=== PATIENT | female | born 1935 | race Caucasian/White ===

== ENCOUNTER 2022-05-08 16:03 | Emergency (ER) | payer MEDICARE, OTHER | END 2022-05-08 17:26 | disposition left against medical advice (07) | LOC: JD.ED 16:03 | DX: Z53.21 Procedure and treatment not carried out due to patient leaving prior to being seen by health care provider (principal) ==

== ENCOUNTER 2022-05-08 18:18 | Emergency (ER) | payer MEDICARE, OTHER ==
[2022-05-08] MEDS ORDERED: HYDROmorphone 1 MG/ML Syringe IM ONE (20:10)
== END 2022-05-08 21:40 | disposition home or self-care (01) ==
LOC: JD.ED 18:18
DX: M25.552 Pain in left hip (principal); I10 Essential (primary) hypertension; F17.210 Nicotine dependence, cigarettes, uncomplicated; Z88.5 Allergy status to narcotic agent; Z88.6 Allergy status to analgesic agent
CPT/HCPCS: 73501; 96372; 99283; J1170

== ENCOUNTER 2023-05-10 20:13 | Emergency (ER) | payer MEDICARE, OTHER ==
[2023-05-10] MEDS ORDERED: Sodium Chloride 0.9% 10 ML Syringe FLUSH PRN (21:01)
[2023-05-10 21:18] LABS: BASOPHILS PERCENT AUTO 0.6 % (0.0-1.0); EOSINOPHILS ABSOLUTE AUTO 0.1 K/mm3 (0.0-0.4); EOSINOPHILS PERCENT AUTO 1.7 % (0.0-6.0); HEMATOCRIT 40.2 % (37.0-47.0); HEMOGLOBIN 13.3 gm/dl (12.0-16.0); IMMATURE GRAN ABSOLUTE AUTO 0.04 K/mm3 (0.00-0.05); IMMATURE GRAN PERCENT AUTO 0.6 % (0.0-0.4); LYMPHOCYTES ABSOLUTE AUTO 0.7 K/mm3 (1.0-4.8); LYMPHOCYTES PERCENT AUTO 11.1 % (24.0-44.0); MEAN CORPUSCULAR HGB CONC 33.1 g/dl (32.0-36.0); MEAN CORPUSCULAR VOLUME 78.7 fl (83.0-99.0); MEAN PLATELET VOLUME 10.1 fl (9.4-12.3); MONOCYTES ABSOLUTE AUTO 0.6 K/mm3 (0.0-0.8); MONOCYTES PERCENT AUTO 8.3 % (0.0-8.0); NEUTROPHILS ABSOLUTE AUTO 5.1 K/mm3 (1.8-7.7); NEUTROPHILS PERCENT AUTO 77.7 % (41.0-71.0); PLATELET COUNT,PLT 236 K/mm3 (150-400); RED BLOOD CELL COUNT 5.11 M/mm3 (4.10-5.30); WHITE BLOOD CELL COUNT,WBC 6.59 K/mm3 (3.9-11.3)
[2023-05-10 21:46] LABS: A/G RATIO 1.1 (1-2); ANION GAP 12.6 (5-15); BILIRUBIN TOTAL 0.2 mg/dL (0.2-1.0); BUN/CREATININE RATIO 18.8 (14-18); CALCIUM 9.5 mg/dL (8.5-10.1); CREATININE 0.8 mg/dL (0.55-1.02); EST CRCL DRUG DOSING (CG) 37.38 mL/min; MAGNESIUM 1.8 mg/dL (1.8-2.4); POTASSIUM,K 3.6 mEq/L (3.5-5.1); PROTEIN TOTAL,TP 7.8 g/dl (6.4-8.2)
[2023-05-10 22:16] LABS: APPEARANCE,URINE CLEAR (Clear); BILIRUBIN,URINE NEGATIVE (Negative); COLOR,URINE YELLOW (Yellow); GLUCOSE,URINE NEGATIVE (Negative); KETONES,URINE NEGATIVE (Negative); LEUKOCYTE ESTERASE,URINE NEGATIVE (Negative); NITRITE,URINE NEGATIVE (Negative); OCCULT BLOOD,URINE NEGATIVE (Negative); PROTEIN,URINE NEGATIVE (Negative); UROBILINOGEN,URINE 0.2 (0.2-1.0)
[2023-05-10 22:25] LABS: RBC,URINE 0-5 /hpf (0-5)
[2023-05-10 22:26] LABS: BACTERIA,URINE FEW /hpf (FEW); MUCUS,URINE FEW /hpf (FEW); SQUAMOUS EPITHELIAL CELLS,UR 0-5 /hpf (0-5); WBC,URINE 0-5 /hpf (0-5)
[2023-05-10] MEDS ORDERED: Iopamidol 612 MG/ML 100 ML Bottle IVPUSH ONE (22:31)
[2023-05-10 22:56] LABS: CORONAVIRUS COVID-19 NAA NEGATIVE (NEGATIVE); INFLUENZA A NAA NEGATIVE (NEGATIVE); RESPIRATORY SYNCYTIAL VIR NAA NEGATIVE (NEGATIVE)
== END 2023-05-10 22:59 | disposition home or self-care (01) ==
LOC: JD.ED 20:13
DX: J44.89 Other specified chronic obstructive pulmonary disease (principal); R79.82 Elevated C-reactive protein (CRP); I10 Essential (primary) hypertension; Z20.822 Contact with and (suspected) exposure to COVID-19; Z90.710 Acquired absence of both cervix and uterus; Z88.5 Allergy status to narcotic agent
CPT/HCPCS: 0241U; 36415; 71046; 80053; 81001; 83735; 84484; 85025; 86140; 93005; 99285; J3490; 93010; 99284

== ENCOUNTER 2024-04-12 13:45 | Inpatient (IN) | payer MEDICARE, OTHER ==
[2024-04-12] MEDS: Ondansetron 4 MG/2 ML SDV IVPUSH ONE (15:19)
[2024-04-12] MEDS: Sodium Chloride 0.9% 10 ML Syringe FLUSH ONE (15:19)
[2024-04-12] MEDS: Sodium Chloride 0.9% 500 ML IV ONE (15:19)
[2024-04-12] MEDS: fentaNYL 100 MCG/2 ML SDV IVPUSH ONE ×3 (15:19→19:13)
[2024-04-12 15:25] LABS: BASOPHILS ABSOLUTE AUTO 0.1 K/mm3 (0.0-0.2); BASOPHILS PERCENT AUTO 0.4 % (0.0-1.0); EOSINOPHILS ABSOLUTE AUTO 0.1 K/mm3 (0.0-0.4); EOSINOPHILS PERCENT AUTO 0.4 % (0.0-6.0); HEMATOCRIT 37.9 % (37.0-47.0); HEMOGLOBIN 12.5 gm/dl (12.0-16.0); IMMATURE GRAN ABSOLUTE AUTO 0.11 K/mm3 (0.00-0.05); IMMATURE GRAN PERCENT AUTO 0.7 % (0.0-0.4); LYMPHOCYTES ABSOLUTE AUTO 1.3 K/mm3 (1.0-4.8); MEAN CORPUSCULAR HEMOGLOBIN 26.9 pg (28.0-32.0); MEAN CORPUSCULAR VOLUME 81.5 fl (83.0-99.0); MONOCYTES ABSOLUTE AUTO 0.9 K/mm3 (0.0-0.8); MONOCYTES PERCENT AUTO 5.7 % (0.0-8.0); NEUTROPHILS ABSOLUTE AUTO 13.9 K/mm3 (1.8-7.7); NEUTROPHILS PERCENT AUTO 84.8 % (41.0-71.0); PLATELET COUNT,PLT 363 K/mm3 (150-400); RED BLOOD CELL COUNT 4.65 M/mm3 (4.10-5.30); WHITE BLOOD CELL COUNT,WBC 16.44 K/mm3 (3.9-11.3)
[2024-04-12 15:48] LABS: ALBUMIN 3.8 g/dl (3.4-5.0); ANION GAP 15.4 (5-15); BILIRUBIN TOTAL 0.3 mg/dL (0.2-1.0); BUN/CREATININE RATIO 23.8 (14-18); CALCIUM 9.5 mg/dL (8.5-10.1); CREATININE 0.8 mg/dL (0.55-1.02); EST CRCL DRUG DOSING (CG) 34.91 mL/min; POTASSIUM,K 4.4 mEq/L (3.5-5.1); PROTEIN TOTAL,TP 7.6 g/dl (6.4-8.2)
[2024-04-12] MEDS: Iopamidol 755 Mg/ML 100 ML Bottle IVPUSH ONE (16:46)
[2024-04-12] MEDS: Sodium Chloride 0.9% 10 ML Syringe FLUSH PRN (16:46)
[2024-04-12] MEDS: Sodium Chloride 0.9% 100 ML IV SCH (16:46)
[2024-04-12] MEDS: Benzocaine 20% Topical Spray UD MUCMEM ONE (20:00)
[2024-04-12] MEDS: HYDROmorphone 0.5 MG/0.5 ML Syringe IVPUSH PRN (20:18)
[2024-04-12] MEDS: Ondansetron 4 MG/2 ML SDV IV PRN (20:18)
[2024-04-12] MEDS: Iopamidol 612 MG/ML 100 ML Bottle IVPUSH ONE (21:34)
[2024-04-12] MEDS: Lactated Ringers 1,000 ML IV SCH (22:37)
[2024-04-13] MEDS: Gabapentin 300 MG Cap PO SCH (01:40)
[2024-04-13] MEDS: Venlafaxine 75 MG Cap.ER PO SCH (01:41)
[2024-04-13] MEDS: Venlafaxine 75 MG Cap.ER PO ONE (01:49)
[2024-04-13 04:18] LABS: APPEARANCE,URINE CLEAR (Clear); BILIRUBIN,URINE NEGATIVE (Negative); COLOR,URINE YELLOW (Yellow); GLUCOSE,URINE NEGATIVE (Negative); KETONES,URINE TRACE (Negative); LEUKOCYTE ESTERASE,URINE NEGATIVE (Negative); NITRITE,URINE NEGATIVE (Negative); OCCULT BLOOD,URINE 2+ (Negative); PROTEIN,URINE TRACE (Negative); UROBILINOGEN,URINE 0.2 (0.2-1.0)
[2024-04-13 04:26] LABS: BACTERIA,URINE FEW /hpf (FEW); HYALINE CASTS,URINE 0-5 /lpf (0-5); MUCUS,URINE RARE /hpf (FEW); RBC,URINE 50-75 /hpf (0-5); SQUAMOUS EPITHELIAL CELLS,UR 0-5 /hpf (0-5); WBC,URINE 0-5 /hpf (0-5)
[2024-04-13 05:44] LABS: HEMATOCRIT 38.5 % (37.0-47.0); HEMOGLOBIN 12.9 gm/dl (12.0-16.0); MEAN CORPUSCULAR HEMOGLOBIN 27.1 pg (28.0-32.0); MEAN CORPUSCULAR HGB CONC 33.5 g/dl (32.0-36.0); MEAN CORPUSCULAR VOLUME 80.9 fl (83.0-99.0); MEAN PLATELET VOLUME 9.6 fl (9.4-12.3); PLATELET COUNT,PLT 328 K/mm3 (150-400); RED BLOOD CELL COUNT 4.76 M/mm3 (4.10-5.30); WHITE BLOOD CELL COUNT,WBC 21.28 K/mm3 (3.9-11.3)
[2024-04-13 06:03] LABS: ANION GAP 11.6 (5-15); BUN/CREATININE RATIO 21.4 (14-18); CALCIUM 8.9 mg/dL (8.5-10.1); CREATININE 0.7 mg/dL (0.55-1.02); EST CRCL DRUG DOSING (CG) 39.9 mL/min; MAGNESIUM 1.8 mg/dL (1.8-2.4); PHOSPHORUS 3.7 mg/dL (2.6-4.7); POTASSIUM,K 4.6 mEq/L (3.5-5.1)
[2024-04-13] MEDS: Levothyroxine 88 MCG Tab PO SCH (06:42)
[2024-04-13] MEDS: Enoxaparin 40 MG/0.4 ML Syringe SUBCUT SCH (08:27)
[2024-04-13] MEDS: amLODIPine 5 MG Tab PO SCH (08:28)
[2024-04-13] MEDS: Piperacillin/Tazobactam 4.5 GM in Sodium Chloride 0.9% 100 ML IV ONE (08:28)
[2024-04-13] MEDS: Benzocaine/Cetylpyridinium/Menthol Lozenge MUCMEM PRN (08:28)
[2024-04-13] MEDS: Benzocaine 20% Topical Spray UD MUCMEM PRN (08:28)
[2024-04-13] MEDS: Piperacillin/Tazobactam 4.5 GM in Sodium Chloride 0.9% 100 ML IV SCH (12:47)
[2024-04-13] MEDS: HYDROmorphone 0.5 MG/0.5 ML Syringe IVPUSH ONE ×2 (14:18→18:04)
[2024-04-13 14:27] LABS: BASOPHILS PERCENT AUTO 0.2 % (0.0-1.0); EOSINOPHILS PERCENT AUTO 0.1 % (0.0-6.0); HEMATOCRIT 39.6 % (37.0-47.0); HEMOGLOBIN 13.1 gm/dl (12.0-16.0); IMMATURE GRAN ABSOLUTE AUTO 0.08 K/mm3 (0.00-0.05); IMMATURE GRAN PERCENT AUTO 0.5 % (0.0-0.4); LYMPHOCYTES ABSOLUTE AUTO 0.9 K/mm3 (1.0-4.8); LYMPHOCYTES PERCENT AUTO 5.2 % (24.0-44.0); MEAN CORPUSCULAR HEMOGLOBIN 27.5 pg (28.0-32.0); MEAN CORPUSCULAR HGB CONC 33.1 g/dl (32.0-36.0); MEAN PLATELET VOLUME 9.6 fl (9.4-12.3); MONOCYTES ABSOLUTE AUTO 0.9 K/mm3 (0.0-0.8); MONOCYTES PERCENT AUTO 5.3 % (0.0-8.0); NEUTROPHILS ABSOLUTE AUTO 15.4 K/mm3 (1.8-7.7); NEUTROPHILS PERCENT AUTO 88.7 % (41.0-71.0); PLATELET COUNT,PLT 320 K/mm3 (150-400); RED BLOOD CELL COUNT 4.77 M/mm3 (4.10-5.30)
[2024-04-13] MEDS ORDERED: Propofol 200 MG/20 ML SDV ONE (20:29)
[2024-04-13] MEDS ORDERED: fentaNYL 250 MCG/5 ML SDV ONE (20:29)
[2024-04-13] MEDS ORDERED: Lidocaine 1% 5 ML VIAL ONE (20:29)
[2024-04-13] MEDS ORDERED: Midazolam 1 MG/ML 2 ML SDV ONE (20:29)
[2024-04-13] MEDS ORDERED: Ondansetron 4 MG/2 ML SDV ONE (20:29)
[2024-04-13] MEDS ORDERED: Rocuronium 50 MG/5 ML Vial ONE ×2 (20:29→21:03)
[2024-04-13] MEDS ORDERED: Succinylcholine 200 MG/10 ML MDV ONE (20:30)
[2024-04-13] MEDS ORDERED: VENLAFAXINE HCL 150 MG PO SCH (21:00)
[2024-04-13] MEDS ORDERED: Venlafaxine 75 MG Cap.ER PO SCH (21:00)
[2024-04-13] MEDS ORDERED: Gabapentin 300 MG Cap PO SCH (21:00)
[2024-04-13] MEDS ORDERED: Lactated Ringers 1,000 ML ONE (21:39)
[2024-04-13] MEDS ORDERED: ePHEDrine 50 MG/ML SDV ONE (21:41)
[2024-04-13] MEDS ORDERED: Phenylephrine 1% 10 MG/ML SDV ONE (21:42)
[2024-04-13] MEDS ORDERED: Ketamine 200 MG/20 ML MDV ONE (21:56)
[2024-04-13] MEDS ORDERED: Dexamethasone 4 MG/ML 5 ML MDV ONE (22:02)
[2024-04-13] MEDS: EPINEPHrine 1 MG/ML SDV ONE (22:10)
[2024-04-13] MEDS: Bupivacaine 0.5% 30 ML SDV ONE (22:10)
[2024-04-13] MEDS ORDERED: droPERidol 5 MG/2 ML SDV IVPUSH PRN (22:17)
[2024-04-13] MEDS ORDERED: Ondansetron 4 MG/2 ML SDV IVPUSH PRN (22:17)
[2024-04-13] MEDS ORDERED: HYDROmorphone 0.5 MG/0.5 ML Syringe IVPUSH PRN (22:17)
[2024-04-13] MEDS ORDERED: fentaNYL 100 MCG/2 ML SDV IVPUSH PRN (22:17)
[2024-04-13] MEDS ORDERED: Sugammadex Sodium 200 MG/2 ML VIAL IV ONE (22:31)
[2024-04-14] MEDS: Diatrizoate Meglumine/Diatrizoate Sodium 37% 120 ML Bottle PO ONE (05:16)
[2024-04-14] MEDS: HYDROmorphone 0.5 MG/0.5 ML Syringe IVPUSH PRN ×2 (06:16→12:21)
[2024-04-14] MEDS: Scopalamine 1mg/3day Transdermal Patch TOP ONE (16:23)
[2024-04-15 06:10] LABS: MEAN CORPUSCULAR HEMOGLOBIN 26.9 pg (28.0-32.0); MEAN CORPUSCULAR HGB CONC 31.8 g/dl (32.0-36.0); MEAN CORPUSCULAR VOLUME 84.6 fl (83.0-99.0); MEAN PLATELET VOLUME 9.7 fl (9.4-12.3); PLATELET COUNT,PLT 312 K/mm3 (150-400); RED BLOOD CELL COUNT 4.02 M/mm3 (4.10-5.30); WHITE BLOOD CELL COUNT,WBC 13.47 K/mm3 (3.9-11.3)
[2024-04-15 06:15] LABS: HEMOGLOBIN 10.8 gm/dl (12.0-16.0)
[2024-04-15 06:31] LABS: ANION GAP 10.1 (5-15); BUN/CREATININE RATIO 16.7 (14-18); CREATININE 0.6 mg/dL (0.55-1.02); EST CRCL DRUG DOSING (CG) 46.55 mL/min; MAGNESIUM 1.8 mg/dL (1.8-2.4); PHOSPHORUS 2.7 mg/dL (2.6-4.7); POTASSIUM,K 4.1 mEq/L (3.5-5.1)
[2024-04-15] MEDS: HYDROmorphone 1 MG/ML Syringe IVPUSH PRN (14:32)
[2024-04-16 04:51] LABS: BASOPHILS PERCENT AUTO 0.4 % (0.0-1.0); EOSINOPHILS ABSOLUTE AUTO 0.2 K/mm3 (0.0-0.4); EOSINOPHILS PERCENT AUTO 1.9 % (0.0-6.0); HEMATOCRIT 33.5 % (37.0-47.0); HEMOGLOBIN 10.6 gm/dl (12.0-16.0); IMMATURE GRAN ABSOLUTE AUTO 0.03 K/mm3 (0.00-0.05); IMMATURE GRAN PERCENT AUTO 0.3 % (0.0-0.4); LYMPHOCYTES PERCENT AUTO 9.3 % (24.0-44.0); MEAN CORPUSCULAR HEMOGLOBIN 26.9 pg (28.0-32.0); MEAN CORPUSCULAR HGB CONC 31.6 g/dl (32.0-36.0); MEAN PLATELET VOLUME 9.2 fl (9.4-12.3); MONOCYTES ABSOLUTE AUTO 0.9 K/mm3 (0.0-0.8); MONOCYTES PERCENT AUTO 7.8 % (0.0-8.0); NEUTROPHILS ABSOLUTE AUTO 8.8 K/mm3 (1.8-7.7); NEUTROPHILS PERCENT AUTO 80.3 % (41.0-71.0); PLATELET COUNT,PLT 274 K/mm3 (150-400); RED BLOOD CELL COUNT 3.94 M/mm3 (4.10-5.30); WHITE BLOOD CELL COUNT,WBC 10.99 K/mm3 (3.9-11.3)
[2024-04-16] MEDS: Polyethylene Glycol 3350 Powder 17 GM Packet PO SCH ×2 (08:53→20:55)
[2024-04-16] MEDS: Docusate Sodium 100 MG Cap PO SCH (08:53)
[2024-04-16] MEDS ORDERED: dexmedeTOMIDine HCl 200 MCG/2 ML SDV ONE (13:26)
[2024-04-16] MEDS ORDERED: Midazolam 1 MG/ML 2 ML SDV ONE (13:26)
== END 2024-04-17 15:45 | disposition home or self-care (01) | DRG 336 ==
LOC: JD.ED 13:45 → JD.MS 19:25
PROVIDERS: ADMIT Surgery; ATTEND Surgery
PROC: 0D9670Z Drainage of Stomach with Drainage Device, Via Natural or Artificial Opening (ICD-10-PCS; 2024-04-12)
PROC: 0WBH0ZX Excision of Retroperitoneum, Open Approach, Diagnostic (ICD-10-PCS; 2024-04-13)
PROC: 0DNE0ZZ Release Large Intestine, Open Approach (ICD-10-PCS; principal; 2024-04-13 21:00)
PROC: 0T9B70Z Drainage of Bladder with Drainage Device, Via Natural or Artificial Opening (ICD-10-PCS; 2024-04-16)
DX: K56.609 Unspecified intestinal obstruction, unspecified as to partial versus complete obstruction (principal); K56.50 Intestinal adhesions [bands], unspecified as to partial versus complete obstruction; C20 Malignant neoplasm of rectum; K91.89 Other postprocedural complications and disorders of digestive system; K56.7 Ileus, unspecified; R33.9 Retention of urine, unspecified; Z66 Do not resuscitate; I10 Essential (primary) hypertension; I25.10 Atherosclerotic heart disease of native coronary artery without angina pectoris; K44.9 Diaphragmatic hernia without obstruction or gangrene; N13.5 Crossing vessel and stricture of ureter without hydronephrosis; F32.A Depression, unspecified; E78.00 Pure hypercholesterolemia, unspecified; M81.0 Age-related osteoporosis without current pathological fracture; F41.9 Anxiety disorder, unspecified; H54.7 Unspecified visual loss; Z96.651 Presence of right artificial knee joint; Z88.5 Allergy status to narcotic agent; Z95.2 Presence of prosthetic heart valve; Z85.038 Personal history of other malignant neoplasm of large intestine; Z90.89 Acquired absence of other organs; Z90.710 Acquired absence of both cervix and uterus; Z87.81 Personal history of (healed) traumatic fracture; Z93.3 Colostomy status; Z98.49 Cataract extraction status, unspecified eye
CPT/HCPCS: 36415; 43752; 71045; 71275; 74018; 74177; 80053; 83690; 85025; 93005; 96361; 96374; 96375; 96376; 99285; J2405; J3010 ×3; J3490 ×3; J7030; Q9967; 00840; 51701; 51702; 51798; 80048; 81001; 83735; 84100; 85027; 88305; 88341; 88342; 93010; 94761; A9270-GY; C1758; J0171; J0330; J0665; J1100; J1171; J1650; J2250; J2371; J2543; J2704; J7120; Q9963

== ENCOUNTER 2024-05-20 11:10 | Emergency (ER) | payer MEDICARE, OTHER ==
[2024-05-20 12:21] LABS: BASOPHILS PERCENT AUTO 0.3 % (0.0-1.0); EOSINOPHILS ABSOLUTE AUTO 0.2 K/mm3 (0.0-0.4); EOSINOPHILS PERCENT AUTO 1.4 % (0.0-6.0); HEMATOCRIT 22.8 % (37.0-47.0); IMMATURE GRAN ABSOLUTE AUTO 0.09 K/mm3 (0.00-0.05); IMMATURE GRAN PERCENT AUTO 0.7 % (0.0-0.4); MEAN CORPUSCULAR HEMOGLOBIN 25.6 pg (28.0-32.0); MEAN CORPUSCULAR HGB CONC 29.8 g/dl (32.0-36.0); MEAN CORPUSCULAR VOLUME 85.7 fl (83.0-99.0); MEAN PLATELET VOLUME 9.4 fl (9.4-12.3); MONOCYTES ABSOLUTE AUTO 0.8 K/mm3 (0.0-0.8); MONOCYTES PERCENT AUTO 6.5 % (0.0-8.0); NEUTROPHILS ABSOLUTE AUTO 10.3 K/mm3 (1.8-7.7); NEUTROPHILS PERCENT AUTO 83.1 % (41.0-71.0); PLATELET COUNT,PLT 389 K/mm3 (150-400); RED BLOOD CELL COUNT 2.66 M/mm3 (4.10-5.30); WHITE BLOOD CELL COUNT,WBC 12.43 K/mm3 (3.9-11.3)
[2024-05-20 12:28] LABS: HEMOGLOBIN 6.8 gm/dl (12.0-16.0)
[2024-05-20 12:35] LABS: A/G RATIO 0.9 (1-2); ALBUMIN 3.1 g/dl (3.4-5.0); ANION GAP 13.4 (5-15); BILIRUBIN TOTAL 0.3 mg/dL (0.2-1.0); CALCIUM 8.6 mg/dL (8.5-10.1); CREATININE 1.5 mg/dL (0.55-1.02); EST CRCL DRUG DOSING (CG) 20.5 mL/min; MAGNESIUM 2.1 mg/dL (1.8-2.4); POTASSIUM,K 5.4 mEq/L (3.5-5.1); PROTEIN TOTAL,TP 6.7 g/dl (6.4-8.2)
[2024-05-20] MEDS: Sodium Chloride 0.9% 500 ML IV SCH (14:42)
== END 2024-05-20 19:17 | disposition home or self-care (01) ==
LOC: JD.ED 11:10
DX: D64.9 Anemia, unspecified (principal); N93.9 Abnormal uterine and vaginal bleeding, unspecified; I10 Essential (primary) hypertension; E03.9 Hypothyroidism, unspecified; F17.210 Nicotine dependence, cigarettes, uncomplicated; Z90.710 Acquired absence of both cervix and uterus; Z96.0 Presence of urogenital implants; Z93.3 Colostomy status; Z88.5 Allergy status to narcotic agent; Z88.8 Allergy status to other drugs, medicaments and biological substances; Z79.890 Hormone replacement therapy; Z79.899 Other long term (current) drug therapy
CPT/HCPCS: 36415; 36430; 80053; 83735; 85025; 86850; 86900; 86901; 86922; 96360; 96361; 99284; J7040; P9016

== ENCOUNTER 2024-06-07 09:17 | Emergency (ER) | payer MEDICARE, OTHER ==
[2024-06-07 10:38] LABS: APPEARANCE,URINE CLEAR (Clear); BILIRUBIN,URINE NEGATIVE (Negative); COLOR,URINE YELLOW (Yellow); GLUCOSE,URINE NEGATIVE (Negative); KETONES,URINE NEGATIVE (Negative); LEUKOCYTE ESTERASE,URINE NEGATIVE (Negative); NITRITE,URINE NEGATIVE (Negative); OCCULT BLOOD,URINE 1+ (Negative); PH,URINE 6.5 (5.0-8.0); PROTEIN,URINE NEGATIVE (Negative); UROBILINOGEN,URINE 0.2 (0.2-1.0)
[2024-06-07 11:31] LABS: BACTERIA,URINE NOT SEEN /hpf (FEW); EPITHELIAL CELLS,URINE 0-5 /hpf (0-5); WBC,URINE 0-5 /hpf (0-5)
[2024-06-07 11:32] LABS: MUCUS,URINE NOT SEEN /hpf (FEW)
== END 2024-06-07 12:04 | disposition home or self-care (01) ==
LOC: JD.ED 09:17
DX: R33.9 Retention of urine, unspecified (principal); I10 Essential (primary) hypertension; E03.9 Hypothyroidism, unspecified; F17.210 Nicotine dependence, cigarettes, uncomplicated; Z95.2 Presence of prosthetic heart valve; Z90.710 Acquired absence of both cervix and uterus; Z88.5 Allergy status to narcotic agent; Z88.8 Allergy status to other drugs, medicaments and biological substances; Z79.01 Long term (current) use of anticoagulants; Z79.890 Hormone replacement therapy; Z79.899 Other long term (current) drug therapy
CPT/HCPCS: 51702; 81001; 99283; 99284

== ENCOUNTER 2024-06-08 06:41 | Emergency (ER) | payer MEDICARE, OTHER ==
[2024-06-08] MEDS ORDERED: Naloxone 0.4 MG/ML SDV IVPUSH PRN ×2 (07:06→08:56)
[2024-06-08 07:28] LABS: BASOPHILS ABSOLUTE AUTO 0.1 K/mm3 (0.0-0.2); BASOPHILS PERCENT AUTO 0.3 % (0.0-1.0); EOSINOPHILS ABSOLUTE AUTO 0.1 K/mm3 (0.0-0.4); EOSINOPHILS PERCENT AUTO 0.7 % (0.0-6.0); HEMATOCRIT 22.2 % (37.0-47.0); IMMATURE GRAN ABSOLUTE AUTO 0.25 K/mm3 (0.00-0.05); IMMATURE GRAN PERCENT AUTO 1.3 % (0.0-0.4); LYMPHOCYTES ABSOLUTE AUTO 0.9 K/mm3 (1.0-4.8); LYMPHOCYTES PERCENT AUTO 4.6 % (24.0-44.0); MEAN CORPUSCULAR HEMOGLOBIN 25.9 pg (28.0-32.0); MEAN PLATELET VOLUME 9.3 fl (9.4-12.3); MONOCYTES PERCENT AUTO 5.1 % (0.0-8.0); NEUTROPHILS ABSOLUTE AUTO 17.5 K/mm3 (1.8-7.7); PLATELET COUNT,PLT 421 K/mm3 (150-400); RED BLOOD CELL COUNT 2.74 M/mm3 (4.10-5.30); WHITE BLOOD CELL COUNT,WBC 19.88 K/mm3 (3.9-11.3)
[2024-06-08] MEDS: Ondansetron 4 MG/2 ML SDV IVPUSH ONE (07:31)
[2024-06-08] MEDS: fentaNYL 100 MCG/2 ML SDV IVPUSH ONE ×3 (07:31→13:10)
[2024-06-08] MEDS: Sodium Chloride 0.9% 250 ML IV ONE (07:31)
[2024-06-08 07:39] LABS: HEMOGLOBIN 7.1 gm/dl (12.0-16.0)
[2024-06-08 07:46] LABS: INR 1.05; PROTHROMBIN TIME 11.1 SECONDS (9.7-12.0)
[2024-06-08 07:49] LABS: A/G RATIO 0.8 (1-2); ALBUMIN 3.1 g/dl (3.4-5.0); ANION GAP 16.7 (5-15); BILIRUBIN TOTAL 0.2 mg/dL (0.2-1.0); BUN/CREATININE RATIO 14.4 (14-18); CREATININE 1.8 mg/dL (0.55-1.02); EST CRCL DRUG DOSING (CG) 16.3 mL/min; POTASSIUM,K 4.7 mEq/L (3.5-5.1); PROTEIN TOTAL,TP 6.9 g/dl (6.4-8.2)
[2024-06-08] MEDS: Sodium Chloride 0.9% 500 ML ONE (10:00)
[2024-06-08] MEDS: fentaNYL 100 MCG/2 ML SDV ONE ×2 (10:11→19:42)
[2024-06-08] MEDS: Acetaminophen 325 MG Tab PO ONE (10:13)
[2024-06-08] MEDS: Acetaminophen 325 MG Tab ONE (10:48)
[2024-06-08] MEDS: HYDROmorphone 1 MG/ML Syringe IVPUSH ONE (13:33)
[2024-06-08] MEDS: Tranexamic Acid 1,000 MG/10 ML Vial IVPUSH ONE (14:10)
[2024-06-08] MEDS: Sodium Chloride 0.9% 100 ML ONE (14:10)
[2024-06-08] MEDS: cefTRIAXone 500 MG Vial IVPUSH ONE (14:35)
== END 2024-06-08 16:20 ==
LOC: JD.ED 06:41
DX: N30.21 Other chronic cystitis with hematuria (principal); D64.9 Anemia, unspecified; Z93.3 Colostomy status; Z79.01 Long term (current) use of anticoagulants; I10 Essential (primary) hypertension; E78.00 Pure hypercholesterolemia, unspecified; E03.9 Hypothyroidism, unspecified; Z88.5 Allergy status to narcotic agent; Z88.8 Allergy status to other drugs, medicaments and biological substances; Z79.890 Hormone replacement therapy; Z79.899 Other long term (current) drug therapy; Z90.710 Acquired absence of both cervix and uterus
CPT/HCPCS: 36415; 36430; 51702; 51798; 80053; 85025; 85610; 86850; 86900; 86901; 86922; 96374; 96375; 96376; 99285; A9270; C1758; J0696; J1171; J2405; J3010; J7030; J7040; P9016